=== PATIENT | male | born 1975 | race Caucasian/White ===

== ENCOUNTER 2018-07-09 11:26 | Emergency (ER) | payer OTHER ==
[~2018-07-09] VITALS: Ht 188 cm; Wt 92.1 kg
[2018-07-09] MEDS ORDERED: IBUPROFEN 800 MG TABLET PO ONE (11:45)
[2018-07-09] MEDS ORDERED: IBUPROFEN 800 MG TABLET ONE (11:49)
--- NOTE | 2018-07-09 12:18 | NUR ---
Patient discharged to home in stable conditon. Written and verbal after care instructions given. Patient verbalizes understanding of instructions.
== END 2018-07-09 12:21 | disposition home or self-care (01) ==
LOC: ER 11:26
DX: G89.11 Acute pain due to trauma (principal); M25.571 Pain in right ankle and joints of right foot; F17.290 Nicotine dependence, other tobacco product, uncomplicated; W51.XXXA Accidental striking against or bumped into by another person, initial encounter; Y93.89 Activity, other specified; Y92.89 Other specified places as the place of occurrence of the external cause; Y99.8 Other external cause status
CPT/HCPCS: 73610; A4663